=== PATIENT | female | born 1995 | race Caucasian/White ===

== ENCOUNTER → 2021-07-30 09:33 | Outpatient (CLI) | payer OTHER, SELFPAY ==
--- NOTE | ~2021-07-30 | US_ITS ---
EXAMINATION: US OB transvaginal DATE: 07/30/2021 09:54 INDICATION: Threatened . TECHNIQUE: Real-time transvaginal obstetric ultrasound. FINDINGS: No prior studies for comparison. The uterus measures 8.4 x 4.3 x 6.3 cm. There is an intrauterine gestational sac. There is a po le. Gestational sac measurements correspond to a 6 week 3 day gestation. [place]-rump length measures 0 .26 cm which corresponds to a 5 week 6 day gestation. No heart motions detected. Small subchori onic hemorrhage measuring 6 x 6 x 3 mm. Right ovary is not visualized. Left ovary within normal limit s. No free fluid in the pelvis. IMPRESSION: 1. Intrauterine gestational sac with pole which corresponds to a 5 week 6 day gestation. No fet al heart motions detected. Small subchorionic hemorrhage. Lack of heart motions may be due to e shannan gestational age or failed . Recommend follow-up with serial quantitative beta-hCG level s and ultrasound as clinically indicated. 2: Small subchorionic hemorrhage. Reviewed, dictated and finalized at location A. RESS MAKER IMPRESSION: 1. Intrauterine gestational sac with pole which corresponds to a 5 week 6 day gestation. No heart motions detected. Small subchorionic hemorrhage. Lack of heart motions may be due to early gestational age or failed preg j luis. Recommend follow-up with serial quantitative beta-hCG levels and ultraso und as clinically indicated. 2: Small subchorionic hemorrhage.
== END ==
PROVIDERS: Visit Provider Nurse Practitioner
DX: O46.91 Antepartum hemorrhage, unspecified, first trimester (principal); Z3A.00 Weeks of gestation of pregnancy not specified
CPT/HCPCS: 76817

== ENCOUNTER → 2021-11-10 15:14 | Outpatient (CLI) | payer OTHER, SELFPAY ==
--- NOTE | ~2021-11-10 | US_ITS ---
EXAMINATION: US OB transvaginal DATE: 11/10/2021 15:34 INDICATION: Uncertain gestational dates. TECHNIQUE: Real-time transvaginal obstetric ultrasound. FINDINGS: No prior studies for comparison. The uterus measures 8.9 x 4.9 x 5.8 cm. There is an intrauterine gestational sac, with pole ramya ntified. The crown rump length measures 0.41 cm, which correlates with a estimated gestational age o f 6 weeks 1 day. heart tones are identified measuring 121 bpm. IMPRESSION: 1. SL IUP with an EGA of 6 weeks, 1 days (EDC by current ultrasound of 07/05/2012 ). Reviewed, dictated and finalized at location B. IMPRESSION: 1. SL IUP with an EGA of 6 weeks, 1 days (EDC by current ultrasound of 07/05/20 12 ).
== END ==
PROVIDERS: Visit Provider Obstetrics & Gynecology Gynecology
DX: Z36.87 Encounter for antenatal screening for uncertain dates (principal); Z3A.01 Less than 8 weeks gestation of pregnancy
CPT/HCPCS: 76817

== ENCOUNTER → 2022-02-11 15:48 | Outpatient (CLI) | payer OTHER, SELFPAY ==
--- NOTE | ~2022-02-11 | US_ITS ---
US OB /maternal detail DATE: 02/11/2022 16:31 INDICATION: anatomy screen TECHNIQUE: Real-time imaging and Doppler analysis COMPARISON: None FINDINGS: Live tolbert intrauterine gestation, fetus in vertex presentation. Anterior placenta. Lower margin of placenta is 4.9 cm above the internal os. Subjectively normal amount of amniotic fluid. upper lip appears normal. ventricles are normal. cerebellum is normal. Normal ciste rna magna and nuchal fold. Normal spine. 4 chamber heart with normal left and right ventr icular outflow tracts. heart rate 1 48 bpm. The diaphragm is intact. Fluid is demonstrated in the stomach and urinary bladder. No landon dence of hydronephrosis of the kidneys. Three-vessel umbilical cord with normal insertion at ab dominal wall. extremities appear normal. Biparietal diameter: 4.49 cm; 19 weeks 4 days Head circumference: 16.31 cm; 19 weeks 0 days Abdominal circumference: 14.60 cm; 19 weeks 6 days Femur length: 2.83 cm; 18 weeks 5 days Estimated gestational age by Hadlock formula is 19 weeks 2 days +/- 1 week 2 days with JOSH of 07/06/20 22. Estimated weight is 285.4 +/- 42.8 g. Estimated weight GP: 38.4% Head circumference/abdominal circumference 1.12, within normal range of 1.09-1.26 Femur length/head circumference: 17.32, within normal range of 16.30-18.73 IMPRESSION: Normal anatomy screen Estimated gestational age is 19 weeks 2 days +/- 1 week 2 days, with JOSH of 07/06/2022 Reviewed, dictated and finalized at Location A. Reviewed, dictated and finalized at location A.
== END ==
PROVIDERS: PCP Advanced Practice Midwife; Visit Provider Advanced Practice Midwife
DX: Z36.9 Encounter for antenatal screening, unspecified (principal); Z3A.19 19 weeks gestation of pregnancy
CPT/HCPCS: 76805

== ENCOUNTER → 2022-05-27 15:36 | Outpatient (CLI) | payer OTHER, SELFPAY ==
--- NOTE | ~2022-05-27 | US_ITS ---
EXAMINATION: US OB follow up DATE: 05/27/2022 15:59 INDICATION: Size less than dates during third trimester TECHNIQUE: Real-time ultrasound of the pelvis was performed. The interpreting radiologist was not pre sent for the study. COMPARISON: None. FINDINGS: There is a single living fetus in vertex presentation. The placenta is anterior. card iac activity and movement are noted. heart rate is 130 beats per minute (bpm). The amniot ic fluid index is 18.0 cm which is normal (normal range: 18.1 cm to 24.8 cm). The following biometric data were obtained: Biparietal diameter (BPD): 8.5 cm; head circumference (HC): 30.6 cm; abdominal circumference (AC): 30 .6 cm; femur length (FL): 6.3 cm. These measurements are concordant. Estimated weight is 2312 g +/- 346 g, which correlates with the 31st percentile when 07/05/2022 is used as estimated date of delivery. As single measurements, these parameters are each equal to the following estimated gestational ages w ith ranges of +/- 2 standard deviations: BPD: 34 weeks 1 days ( 31 weeks 0 days - 37 weeks 1 days). HC: 34 weeks 1 days ( 31 weeks 1 days - 37 weeks 1 days). AC: 34 weeks 4 days ( 31 weeks 4 days - 37 weeks 4 days). FL: 32 weeks 4 days ( 29 weeks 4 days - 35 weeks 4 days). estimated gestational age based solely on measurements from this exam is 33 weeks 6 days +/- 2 weeks 3 days. IMPRESSION: 1. Single living fetus in vertex presentation. 2. Estimated weight is 2312 g +/- 346 g, which correlates with the 31st percentile when 07/05/20 22 is used as estimated date of delivery. 3. Normal amniotic fluid index. Reviewed, dictated and finalized at location A. IMPRESSION: 1. Single living fetus in vertex presentation. 2. Estimated weight is 2312 g +/- 346 g, which correlates with the 31st p ercentile when 07/05/2022 is used as estimated date of delivery. 3. Normal amniotic fluid index.
== END ==
PROVIDERS: PCP Family Medicine; Visit Provider Advanced Practice Midwife
DX: O36.5930 Maternal care for other known or suspected poor fetal growth, third trimester, not applicable or unspecified (principal); Z3A.33 33 weeks gestation of pregnancy
CPT/HCPCS: 76816

== ENCOUNTER → 2022-07-01 15:31 | Outpatient (CLI) | payer OTHER, SELFPAY ==
--- NOTE | ~2022-07-01 | US_ITS ---
EXAMINATION: US OB follow up DATE: 07/01/2022 15:50 INDICATION: Estimated size less than expected for estimated gestational age during third trimes ter . TECHNIQUE: Real-time ultrasound of the pelvis was performed utilizing transabdominal probe. The inter preting radiologist was not present for the study. COMPARISON: 05/27/2022 FINDINGS: There is a single living fetus in vertex presentation. The placenta is anterior and not low-lying. F etal heart rate is 155 beats per minute (bpm). The amniotic fluid index is 11.6 cm, which is normal (5th%-95%: 7.2-22.6 cm at 39 weeks estimated gestational age). The following biometric data were obtained: BPD: 8.8 cm -> 35 weeks 3 days Head circumference: 31.5 cm -> 35 weeks 3 days Abdominal circumference: 31.7 cm -> 35 weeks 4 days Femur length: 6.6 cm -> 34 weeks 0 days These measurements are concordant. Head circumference to abdominal circumference ratio: 1.00 (normal range 0.93-1.11). Estimated weight: 2600 g (+/-) 390 g or 5 lbs. 12 oz. (+/-) 14 oz. IMPRESSION: 1. Single living fetus in vertex presentation with heart rate of 155 bpm. 2. Normal amniotic fluid index of 11.6 cm. 3. Estimated weight is <3rd percentile by Hadlock criteria when 07/05/2022 is used as the estima radha date of delivery (JOSH). This is decreased from the 31st percentile on study performed 01/24/2022. Please correlate with clinical information or earlier ultrasounds for most accurate JOSH. Reviewed, dictated and finalized at location B. IMPRESSION: 1. Single living fetus in vertex presentation with heart rate of 155 bpm. 2. Normal amniotic fluid index of 11.6 cm. 3. Estimated weight is <3rd percentile by Hadlock criteria when 07/05/2022 is used as the estimated date of delivery (JOSH). This is decreased from the 31 st percentile on study performed 01/24/2022. Please correlate with clinical info rmation or earlier ultrasounds for most accurate JOSH.
== END ==
PROVIDERS: PCP Advanced Practice Midwife; Visit Provider Advanced Practice Midwife
DX: O36.5930 Maternal care for other known or suspected poor fetal growth, third trimester, not applicable or unspecified (principal); Z3A.00 Weeks of gestation of pregnancy not specified
CPT/HCPCS: 76816

== ENCOUNTER 2022-07-02 11:16 | Inpatient (IN) | payer OTHER, SELFPAY ==
[2022-07-02] VITALS (14 sets, daily range): BP systolic 80–119; BP diastolic 42–78; PULSE 74–113; TEMP 36.9–37.6; BMI 27.3
[2022-07-02 11:51] LABS: Basophils Percent Auto 0.2 % (0.2-1.2); Eosinophils Absolute Auto 0.1 K/mm3 (0-0.3); Eosinophils Percent Auto 0.8 % (0-4.4); Hematocrit 36.9 % (37.0-47.0); Hemoglobin 12.5 g/dL (12.0-15.0); Immature Granulocyte Absolute 0.05 K/mm3 (0.00-0.031); Immature Granulocyte Percent A 0.5 % (0-0.5); Lymphocytes Absolute Auto 1.32 K/mm3 (0.9-3.2); Lymphocytes Percent Auto 12.1 % (18.3-44.2); Mean Corpuscular HGB Conc 33.9 g/dl (32-36); Mean Corpuscular Hemoglobin 30.6 pg (26-34); Mean Corpuscular Volume 90.4 fl (80-100); Mean Platelet Volume 11.7 fl (7.4-10.4); Monocytes Absolute Auto 0.6 K/mm3 (0.1-0.6); Monocytes Percent Auto 5.5 % (2.6-8.5); Neutrophils Absolute Auto 8.8 K/mm3 (1.3-6.7); Neutrophils Percent Auto 80.9 % (45.5-73.1); Platelet Count Result 180 k/mm3 (150-375); Red Blood Count 4.08 M/mm3 (4.2-5.4); Red Cell Distribution Width 13.2 % (11.5-14.5); White Blood Count 10.9 K/mm3 (4.5-10.0)
[2022-07-02] MEDS: DINOPROSTONE 10 MG VAG INSERT VAGINAL (12:34)
--- NOTE | 2022-07-02 12:36 | LDADM ---
This patient, Shannen Merrill, was admitted to Labor/Delivery/Recovery 108 on 07/02/22 at 11:16. Plans for labor, pain management and were discussed with patient. Patient/family oriented to hospital policies and general routines including ID bracelet, bed and alarms, visiting hours, pain management, procedures, bathroom and other care routines, personal items, smoking policy, room service/diet and guest tray routines, security routines, and visiting hours. Patient/Family are encouraged to report perceived risks to care and to ask questions if they do not understand what they are told or what they should do. See OBIX for further documentation.
[2022-07-03] VITALS (195 sets, daily range): BP systolic 66–145; BP diastolic 24–92; PULSE 59–210; RESP 18; TEMP 36.8–37.9; O2SAT 79–100
[2022-07-03] MEDS: LACTATED RINGERS 1,000 ML 125 ML IV CONT ×4 (00:57→14:11)
--- NOTE | 2022-07-03 01:01 | P.PNAN_ITS ---
Anes - Eval Pre Procedure Procedure: labor epidural Date/Time: 07/03/22 01:01 Surgeon: [place] Preop Diagnosis: pain during labor Pre Op Diagnosis: IOL Patient Data Age: 26 Gender: F Height: 1.65 m Weight: 74.4 kg Last Vital Signs Temp 36.9 C 07/02/22 19:00 Pulse 95 07/03/22 01:31 [employer] SUPERVISOR BP 113/63 07/03/22 01:31 [employer] SUPERVISOR O2 Del Method Room Air 07/02/22 12:36 Allergies Allergy/AdvReac Type Severity Reaction Status Date / Time codeine Allergy Itching Verified 06/10/22 13:30 latex Allergy Rash Verified 06/10/22 13:39 Home Medications Medication Instructions Recorded Confirmed Type prenat.vits,talisha,zjl-eykv-clrbh 1 tablet PO DAILY 06/10/22 06/10/22 History sertraline 100 mg tablet 100 mg PO DAILY 06/10/22 06/10/22 History Laboratory Tests 07/02/22 07/02/22 07/02/22 11:43 11:43 11:43 WBC 10.9 K/mm3 H K/mm3 (4.5-10.0) RBC 4.08 M/mm3 L M/mm3 (4.2-5.4) Hgb 12.5 g/dL g/dL (12.0-15.0) Hct 36.9 % L % (37.0-47.0) MCV 90.4 fl fl (80-100) MCH 30.6 pg pg (26-34) MCHC 33.9 g/dl g/dl (32-36) RDW 13.2 % % (11.5-14.5) Plt Count 180 k/mm3 k/mm3 (150-375) MPV 11.7 fl H fl (7.4-10.4) Immature Gran % (Auto) 0.5 % % (0-0.5) Neut % (Auto) 80.9 % H % (45.5-73.1) Lymph % (Auto) 12.1 % L % (18.3-44.2) [place] % (Auto) 5.5 % % (2.6-8.5) Eos % (Auto) 0.8 % % (0-4.4) Baso % (Auto) 0.2 % % (0.2-1.2) Lymph # (Auto) 1.32 K/mm3 K/mm3 (0.9-3.2) [place] # (Auto) 0.6 K/mm3 K/mm3 (0.1-0.6) Eos # (Auto) 0.1 K/mm3 K/mm3 (0-0.3) Baso # (Auto) 0.0 K/mm3 K/mm3 (0.0-0.1) Abs Immat Gran (auto) 0.05 K/mm3 H K/mm3 (0.00-0.031) Absolute Neuts (auto) 8.8 K/mm3 H K/mm3 (1.3-6.7) Absolute Nucleated RBC 0.0 K/mm3 K/mm3 (0.0-0.012) Nucleated RBC % 0.0 % % (0.0-0.2) RPR Pending Blood Type A Positive Antibody Screen Negative Patient hx anesthesia problems: none Family hx anesthesia problems: none Results Review: All pre-operative results and documents have been reviewed as part of the pre- operative evaluation. 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
[2022-07-03] MEDS: OXYTOCIN 30 UNITS/NS 500 ML 30 UNITS/500 ML BAG 6 UNITS IV CONT (01:34)
--- NOTE | 2022-07-03 02:25 | WPDOBADMIT ---
Obstetrics - Admit Note Admission Note: record reviewed. No pertinent additions to the history and/or any subsequent changes in the physical findings that are not consistent with the expected course of the were found. Additions to the history and/or subsequent changes in the physical findings follow. Here for MIL at 39 wks for IUGR with EFW at <3%. Cervadil x 12 hours and now Pitocin. Cervix /-2. FHTs reactive
--- NOTE | 2022-07-03 02:33 | PM.OBPNLAB ---
Pain Control Date/time seen: 07/03/22 02:33 Pain control: tolerating well Pelvic Exam Dilation (cm): 1 Effacement (%): 50 station: -2 Amniotic membrane status: Ruptured (AROM with clear fluid) Comments: IUPC placed Status status: Category l
[2022-07-03] MEDS: fentaNYL CITRATE INJ (*CRX) 100 MCG/2 ML VIAL IV PUSH ×2 (07:07→10:12)
[2022-07-03] MEDS: ONDANSETRON INJ 4 MG/2 ML VIAL IV PUSH (19:09)
--- NOTE | 2022-07-03 19:31 | PM.OBPRVD ---
OB - Delivery Note Procedure Delivery date: 07/03/22 Procedure: Events: Intrauterine Growth Restriction (IUGR) Induction method: AROM, Per Pitocin Protocol and Per Cervidil Protocol Delivery monitor: External FHT and Internal Uterine Route of delivery: Laceration Description: Vaginal Delivery repair: vicryl (3-0) Specimen: Yes (placenta) Quantitative Blood Loss (ml): 200 Anesthesia type: Epidural Disposition: Floor Baby Date of : 07/03/22 Weeks of gestation at delivery: 39 Infant gender: Female Weight (pounds): 5 Weight (ounces): 13 presentation: vertex position: Right Occiput Anterior Placenta delivery description: Manual Removal (cord very thin and was avulsing) Cord Vessel Description: 3 Vessels and Nuchal Cord score one minute: 7 score five minutes: 9
--- NOTE | 2022-07-03 19:33 | PM.OBDSVD ---
DS: Admitting Diagnosis Discharge Date 07/05/22 Admitting Diagnosis IUP 39 wks IUGR DS: Discharge Diagnosis Discharge Diagnosis (1) (normal spontaneous vaginal delivery): Code(s): O80 - Encounter for full-term uncomplicated delivery Status: Acute OB - DS: Summary OB Procedures : Ultrasound OB Procedures Intrapartum: Spontaneous Vag Delivery OB Procedures: : None Peripartum Data Delivery Method: Natural Vaginal Laceration Description: Vaginal - 1st Degree complications: none Status at Discharge Functional status at discharge: independent ambulation Overall status at discharge: patient is progressing back to baseline Time Spent with Patient Time attestation: Total time spent providing and/or coordinating discharge services: Discharge Plan Discharge Attending physician on discharge: Gifty Membreno Discharging Clinician: Gifty Membreno Anticipated Discharge Date/Time: 07/05/22 19:34 Patient Disposition: Home, Self-Care Activity: may shower, may drive after 2 weeks and pelvic rest Diet: regular Patient Instructions: Antibiotic Form Stand Alone Forms: General Discharge Information Follow-up/Referrals: Gifty Membreno MD [Physician] - 6 Weeks Discharge Medications: New Slynd 4 mg (28) tablet 4 mg PO DAILY 90 Days Qty: 90 1RF Continued sertraline 100 mg Tablet 100 mg PO DAILY #2 Tablet 1 tablet PO DAILY Date of admission: 07/02/22 11:16 Primary Care Provider: Denia Blackman Admitting Provider: Gifty Membreno Attending physician on admission: Gifty Membreno Condition: Stable
[2022-07-03] MEDS: WITCH HAZEL 40 PADS 1 PAD TOPICAL (21:46)
[2022-07-03] MEDS: BENZOCAINE 20% AER SPR (*SP) 56 GM CAN 1 SPRAY TOPICAL (21:46)
[2022-07-04 05:20] VITALS: BP 104/61; PULSE 92; RESP 16; TEMP 36.4; O2SAT 99
[2022-07-04 05:22] LABS: Hematocrit 32.9 % (37.0-47.0); Hemoglobin 11.4 g/dL (12.0-15.0)
--- NOTE | 2022-07-04 07:28 | WPDANLDPN2 ---
Anes-Prog Note L&D Date/Time: 07/04/22 07:28 Comfortable throughout: labor and delivery Neuraxial method: epidural Epidural/Spinal procedure site: clean & non-tender Neuro status: Neuro function grossly intact. Cardiovascular status: normal Respiratory status: normal Airway patency: baseline Mental status: baseline Post-Op hydration status: normal Vital Signs: Last Vital Signs Temp 36.4 C 07/04/22 05:20 Pulse 92 07/04/22 05:20 Resp 16 07/04/22 05:20 BP 104/61 07/04/22 05:20 Pulse Ox 99 07/04/22 05:20 O2 Del Method Room Air 07/02/22 12:36 Pain score (VAS): 09/06 I/O: Intake & Output 07/03/22 07/03/22 07/04/22 15:59 23:59 07:59 Intake Total 1999 1099 Output Total 1188 Balance 1999 Post-procedural complaints: none Patient feedback: Patient satisfied with anesthetic care.
[2022-07-04] MEDS: MULTIVIT/MIN/PREN/FOL AC/IRON TABLET 1 TAB PO (07:40)
[2022-07-04] MEDS: IBUPROFEN 600 MG TABLET PO ×2 (07:49→15:40)
[2022-07-04] MEDS: SERTRALINE HCL 50 MG TABLET 100 MG PO (07:50)
[2022-07-04] MEDS: DOCUSATE SODIUM 100 MG CAPSULE PO (07:50)
[2022-07-04 08:00] VITALS: BP 104/63; PULSE 76; RESP 16; TEMP 36.6; O2SAT 100
--- NOTE | 2022-07-04 09:13 | PC.NURSE ---
[id number] Introductions were made, then consulted with patient to assess needs related to . Mother led the conversation with her?plans to feed?her infant and the?experience so far. Resources provided for inpatient and outpatient services using mom/baby guide. Mother voiced understanding of information and will call if there is a request for assistance. RN encouraged upright skin to skin on mother and discussed visualizing the feeding cues of her infant. Mother latched her independently to the left breast using cross cradle positioning. Good rocking motion, swallowing, denial of discomfort was visualized and reported by mother. Mother voiced understanding to call for nurse assistance if there is pain with nursing, does not wake to breastfeed 3 hours from the start of the last , difficulty latching her infant, or if she has any concerns. Reviewed the mom/ baby guide is there for additional resources as well. Reported to primary RN.
--- NOTE | 2022-07-04 09:34 | PM.OBPNVD ---
OB - PN: Subj Subjective Date/time seen: 07/04/22 09:34 Patient comments: no complaints and pain well controlled baby status: doing well OB - PN: Obj Data Labs CBC & Chem 7: 07/04/22 05:10 Labs: Laboratory Results - last 24 hr 07/04/22 05:10 Hgb 11.4 L Hct 32.9 L OB - PN A/P Plan day: 1 Plan: routine care Time Spent With Patient Time: Total time spent is greater than 50% in coordination of care (as documented) at patient's floor/unit and/or counseling patient: Exam : Bimanual exam- vagina & uterus: other (Uterus firm, nt @U)
[2022-07-04 11:31] VITALS: BP 115/63; PULSE 85; RESP 16; TEMP 36.3; O2SAT 99
[2022-07-04 12:13] LABS: Rapid Plasma Reagin Non-Reactive (NonReactive)
[2022-07-04 16:15] VITALS: BP 107/52; PULSE 84; RESP 16; TEMP 37.1; O2SAT 98
[2022-07-04 18:22] VITALS: BP 104/65; PULSE 80; RESP 16; TEMP 36.6
--- NOTE | 2022-07-05 07:45 | PM.OBPNVD ---
OB - PN: Subj Subjective Date/time seen: 07/05/22 07:45 Patient comments: no complaints and pain well controlled baby status: doing well OB - PN: Obj Data Labs CBC & Chem 7: 07/04/22 05:10 Labs: Laboratory Results - last 24 hr 07/02/22 11:43 RPR Non-reactive OB - PN A/P Plan day: 2 Plan: routine care, discharge home, follow up 6 weeks and other (plans oc's) Time Spent With Patient Time: Total time spent is greater than 50% in coordination of care (as documented) at patient's floor/unit and/or counseling patient: Exam : Bimanual exam- vagina & uterus: other (Uterus firm, nt @U)
[2022-07-05 08:15] VITALS: BP 107/60; PULSE 79; RESP 16; TEMP 37.7; O2SAT 99
[2022-07-05 09:00] VITALS: PULSE 79; RESP 16; O2SAT 99
[2022-07-06 08:53] VITALS: BP 115/70; PULSE 89; RESP 16; TEMP 36.8; O2SAT 100
== END 2022-07-05 10:15 | disposition home or self-care (01) | DRG 807 ==
LOC: ANHLDR 07-03 19:34 → ANHOB2 07-03 22:16
PROVIDERS: Admitting Provider Obstetrics & Gynecology Gynecology; PCP Advanced Practice Midwife; Visit Provider Obstetrics & Gynecology Gynecology
DX: O36.5930 Maternal care for other known or suspected poor fetal growth, third trimester, not applicable or unspecified (principal); Z37.0 Single live birth; Z3A.39 39 weeks gestation of pregnancy; O36.8330 Maternal care for abnormalities of the fetal heart rate or rhythm, third trimester, not applicable or unspecified; O70.0 First degree perineal laceration during delivery; O69.81X0 Labor and delivery complicated by cord around neck, without compression, not applicable or unspecified; O99.344 Other mental disorders complicating childbirth; F32.A Depression, unspecified
CPT/HCPCS: 36415; 85014; 85018; 85025; 86592; 86850; 86900; 86901; 88307; A9270; J2405; J2590; J2795; J3010; J7120

== ENCOUNTER 2024-04-04 15:43 | Outpatient (CLI) | payer BC, SELFPAY ==
--- NOTE | ~2024-04-04 | US_ITS ---
US OB transvaginal Ordering provider: Gifty Membreno MD History: . UNCERTAIN DATES/INCONC VIABILITY . Comparison: None. Technique: endovaginal ultrasound of the pelvis (Doppler ultrasound interrogation techniques used as needed for this exam.) FINDINGS: CERVIX: Normal. UTERUS: Measures 8.8x 4.5x 6.1 cm in length which is within normal limits and is anteverted. No myom etrial masses. ENDOMETRIUM: Complex echogenicity material is seen in the endometrial cavity with slightly echogenic rim. This area measures 2.5 x 1.3 cm. Another smaller hypoechoic area measuring 1.1 x 5.8 x 0.8 cm is noted. CUL DE SAC: No free fluid. RIGHT OVARY: Normal in size measuring 8.2x 4.7x 8.2 centimeters. Normal echotexture. Doppler vascular flow present. Complex cystic area seen measuring 4.3 x 4.1 x 4.3 cm. Another one is seen measuring 2 .7 x 2.6 x 2.9 cm.. A third one is seen measuring 2.5 x 1.7 x 2.6 cm. Rounded area measuring 1.5 x 1.4x 1.7 cm with central hypoechoic Area is noted which may represent a gestational sac with yolk sac. Further evaluation and clinical correlation advised. LEFT OVARY: Normal in size measuring 9.7x 8.8x 13.9 cm. Normal echotexture. Doppler vascular flow pre sent. Cyst is seen measuring 7 x 8.8 x 6.1 cm. Another cyst is seen measuring 5.6 x 7.8 x 7.3 cm. ADNEXA: Normal. No mass. IMPRESSION: Possible right ectopic . Clinical Correlation with test values is advised. Endometrial mixed echogenicity area which may represent decidual reaction with fluid or gestational s ac. Bilateral ovarian cysts which may be hemorrhagic on the right side and simple on the left side.. Physician: Gifty Membreno MD Was notified with the result of the patient at 5:01 PM on April 04, 2024. Reviewed, dictated and finalized at location A. IMPRESSION: Possible right ectopic . Clinical Correlation with test valu es is advised. Endometrial mixed echogenicity area which may represent decidual reaction with fluid or gestational sac. Bilateral ovarian cysts which may be hemorrhagic on the right side and simple o n the left side.. Physician: Gifty Membreno MD Was notified with the result of the patient at 5:01 PM on April 04, 2024.
== END 2024-04-04 15:44 ==
LOC: MICIMG 15:43
PROVIDERS: PCP Obstetrics & Gynecology Gynecology; Visit Provider Obstetrics & Gynecology Gynecology
DX: Z36.87 Encounter for antenatal screening for uncertain dates (principal); Z3A.00 Weeks of gestation of pregnancy not specified; N83.201 Unspecified ovarian cyst, right side; N83.202 Unspecified ovarian cyst, left side
CPT/HCPCS: 76817

== ENCOUNTER 2024-04-05 16:44 | Outpatient (CLI) | payer BC, SELFPAY ==
[2024-04-05] MEDS: METHOTREXATE SODIUM/PF 50 MG/2 ML VIAL 41.75 MG IM ×2 (17:14→17:15)
[2024-04-05 17:19] LABS: Hematocrit 34.2 % (37.0-47.0); Hemoglobin 11.7 g/dL (12.0-15.0); Mean Corpuscular HGB Conc 34.2 g/dl (32-36); Mean Corpuscular Hemoglobin 30.9 pg (26-34); Mean Corpuscular Volume 90.2 fl (80-100); Mean Platelet Volume 10.5 fl (7.4-10.4); Platelet Count Result 186 k/mm3 (150-375); Red Blood Count 3.79 M/mm3 (4.2-5.4); Red Cell Distribution Width 12.3 % (11.5-14.5); White Blood Count 7.8 K/mm3 (4.5-10.0)
[2024-04-05 17:37] LABS: Alanine Aminotransferase 10 U/L (6-35); Albumin Level 4.2 g/dL (3.5-5.1); Alkaline Phosphatase 31 U/L (38-126); Anion Gap 9 mmol/L (4-12); Aspartate Amino Transferase 16 U/L (14-36); Bilirubin,Total 0.3 mg/dL (0.2-1.3); Blood Urea Nitrogen 12 mg/dL (7-17); Calcium 9.2 mg/dL (8.4-10.2); Carbon Dioxide 23 mmol/L (22-30); Chloride 103 mmol/L (98-107); Estimated Glomerular Filt Rate > 60; Glucose 105 mg/dL (65-110); Potassium 3.6 mmol/L (3.4-5.0); Sodium 135 mmol/L (137-145)
== END 2024-04-05 16:45 | disposition home or self-care (01) ==
PROVIDERS: Visit Provider Obstetrics & Gynecology Gynecology
DX: O00.90 Unspecified ectopic pregnancy without intrauterine pregnancy (principal)
CPT/HCPCS: 36415; 80053; 85027; 96372; J9260